=== PATIENT | male | born 1995 | race Caucasian/White ===

== ENCOUNTER 2021-01-01 05:05 | Observation (INO) ==
[2021-01-01] MEDS ORDERED: CefOXitin 1,000 MG VIAL ONE (09:25)
[2021-01-01] MEDS ORDERED: *HR* OxyCODONE Immed Rel 5 MG TABLET PO PRN (09:48)
[2021-01-01] MEDS ORDERED: *HR* HYDROmorphone PF 0.5 MG/0.5 ML SYRINGE IVP PRN (09:48)
[2021-01-01] MEDS ORDERED: Ondansetron 4 MG/2 ML VIAL IVP PRN (09:48)
[2021-01-01] MEDS ORDERED: *HR* FentaNYL (PF) 100 MCG/2 ML VIAL ONE (09:58)
[2021-01-01] MEDS ORDERED: *HR* Propofol 200 MG/20 ML VIAL IVP ONE (09:59)
[2021-01-01] MEDS ORDERED: Ondansetron 4 MG/2 ML VIAL ONE (10:02)
[2021-01-01] MEDS ORDERED: Lidocaine -MPF 2% 5 ML VIAL ONE (10:03)
[2021-01-01] MEDS ORDERED: CefOXitin 2,000 MG VIAL ONE (10:04)
[2021-01-01] MEDS ORDERED: *HR* HYDROMORPHONE 2 MG/ML VIAL ONE (10:07)
[2021-01-01] MEDS ORDERED: Acetaminophen IV 1,000 MG/100 ML BAG IVPB ONE (10:08)
[2021-01-01] MEDS ORDERED: *HR* OxyCODONE/APAP 5/325 TABLET PO PRN (10:29)
[2021-01-01] MEDS: 0.9 % Sodium Chloride 1,000 ML IVC SCH ×2 (12:32→23:50)
[2021-01-01] MEDS: cefOXitin 2,000 MG in Water for inj. (sterile) 10 ML IVP SCH (16:22)
[2021-01-02] MEDS: cefOXitin 2,000 MG in Water for inj. (sterile) 10 ML IVP SCH ×3 (00:45→17:09)
[2021-01-02 10:25] VITALS: BP 137/78; PULSE 68; TEMP 97.7; O2SAT 96
== END 2021-01-02 18:00 | disposition home or self-care (01) ==
LOC: 3ANU
PROVIDERS: ADMIT Surgery; ATTEND Surgery